=== PATIENT | male | born 1980 | race Two or more races ===

== ENCOUNTER 2016-11-07 16:03 | Emergency (ER) | payer OTHER ==
[2016-11-07 16:15] VITALS: BP 140/85; PULSE 62; RESP 18; TEMP 98.1; O2SAT 99
[2016-11-07] MEDS ORDERED: cefTRIAXone 250 MG VIAL IM ONE (16:28)
[2016-11-07] MEDS ORDERED: AZITHROMYCIN 250 MG TAB PO ONE (16:28)
--- NOTE | 2016-11-07 16:32 | EDPHY ---
H & P Time Seen by Provider: 11/07/16 16:11 HPI/ROS: HPI Penile irritation, concerned about STD. 28-year-old male by private vehicle. Reports that he had protected sex in the last couple of days with an on and off girlfriend. Reports that for the last 4 days he has had irritation around his glans penis with a whitish discharge around this area and a burning sensation at the tip when he urinates. He denies any purulent discharge. No penile lesions. No history of diabetes. He has not had symptoms similar to this in the past. ROS: Constitutional: No fever, no chills. No weakness. Eyes: No discharge. No changes in vision. Respiratory: No cough. No shortness of breath. Cardiac: No chest pain, no palpitations. Gastrointestinal: No abdominal pain, no vomiting, no diarrhea. Genitourinary: No hematuria. As above. Musculoskeletal: No back pain. No neck pain. No myalgias or arthralgias. Skin: No rashes. Neurological: No headache. No focal weakness or altered sensation. Past medical history: No medical history. Denies any prescription medications. [facility]. Social history: Here by himself. No alcohol. Nonsmoker. Denies IV drugs or street drugs. Physical Exam: General Appearance: Alert, no distress. This patient is responding to questions appropriately and in full sentences. This patient appears well- hydrated and well-nourished. Eyes: Pupils equal and round no pallor or injection. No lid edema, erythema or injection. Genitourinary: No purulent discharge from the penile meatus. Uncircumcised penis. On retraction of the foreskin there is some whitish discharge with underlying erythema around the base of the glans penis. There are no skin ulcerations or other lesions involving the penis or testicles. Gastrointestinal: Abdomen is soft and nontender, no masses, bowel sounds normal. No focal tenderness at McBurney's point. No Baum sign. Neurological: Motor sensory function is grossly intact. Cranial nerves are normal. Gait is normal. Skin: Warm and dry, no rashes. Extremities are symmetrical. All joints range without pain or impingement. Psychiatric: No agitation. No depression. Database: EKG: Imaging: Procedures: Emergency department course: Vital signs reviewed and are unremarkable. Patient concerned about STD although he states that he used a condom with recent sexual relations with a woman. Urine sent for GC and chlamydia testing. He will be treated for gonorrhea and chlamydia with IM ceftriaxone and oral azithromycin considering his history. However, his presentation is more consistent with balanoposthitis. His blood sugar is within normal limits. I will discharge him with plan to treat him with nystatin cream. He has been instructed to return to the emergency department in 2-3 days for follow up with his primary care physician at [facility] for re-evaluation. If the rash is not clearing by that time he is to be treated for a possible bacterial source with Keflex. He understands this plan. All of his questions were answered. Return to emergency department precautions discussed. He was discharged in good condition. Differential Diagnosis: The differential diagnosis on this patient includes but is not limited to balanoposthitis, STI. This represents a partial list of diagnoses considered. These considerations are based on history, physical exam, past history, reassessment and diagnostic testing. Smoking Status: Never smoked Constitutional: Initial Vital Signs Temperature (C) 36.7 C 11/07/16 16:13 Heart Rate 62 11/07/16 16:13 Respiratory Rate 18 11/07/16 16:13 Blood Pressure 140/85 H 11/07/16 16:13 O2 Sat (%) 99 11/07/16 16:13 O2 Delivery Mode Room Air Allergies/Adverse Reactions: No Known Allergies Allergy (Verified 11/07/16 16:12) Home Medications: Medication Instructions Recorded No Medications [No Known] 03/07/12 Nystatin [Mycostatin Cream (RX)] 30 marj TP TID 14 Days cream 11/07/16 Departure - Departure Disposition: Home, Routine, Self-Care Clinical Impression: Balanoposthitis Condition: Good Instructions: Balanitis (ED) Additional Instructions: Read and follow provided instructions. Follow-up with your primary care physician in 2-3 days for re-evaluation as discussed. If your rash is not improving by that time, I recommend that you be treated with the antibiotic Keflex, 500 mg 4 times daily for 7 days. Your test results for sexually transmitted infections will also be available in 1-2 days Nystatin cream: Apply to affected area 3 times daily for 14 days. Return to the emergency department for worsening symptoms, fever, worsening rash or other serious concerns. Referrals: Galina Napoles MD [Primary Care Provider] - As per Instructions Prescriptions: Nystatin [Mycostatin Cream (RX)] 30 marj TP TID 14 Days cream
[2016-11-08 14:42] LABS: CHLAMYDIA AMPLIFICATION GENPRB NEGATIVE (NEGATIVE)
== END 2016-11-07 17:13 | disposition home or self-care (01) ==
LOC: CED 16:03
DX: N47.6 Balanoposthitis (principal)
CPT/HCPCS: 82947-QW; J0696

== ENCOUNTER 2017-12-22 17:21 | Emergency (ER) | payer OTHER ==
--- NOTE | 2017-12-22 17:56 | EDPHY ---
H & P Time Seen by Provider: 12/22/17 17:36 HPI/ROS: CHIEF COMPLAINT: Foreign body sensation in throat History by patient HISTORY OF PRESENT ILLNESS: 37-year-old man presents complaining of pain in the left side of his throat after he felt like he swallowed something metal. Patient states he is eating a piece of sesame chicken at [employer] and his braces bracket broke and he thought maybe he had swallowed the piece of metal from that. He immediately began gagging and choking. He was able to calm down and swallow and drink water but he felt like something was still stuck in the left side of his throat just above his sternal notch. He noticed that the braces were broken but the metal wire was still there, there were no missing pieces. He denies any difficulty breathing. He has been able to swallow without difficulty but with discomfort. REVIEW OF SYSTEMS: As in HPI, and all other systems reviewed and are negative Smoking Status: Never smoked Physical Exam: General Appearance: Alert and no distress. Head: normocephalic, atraumatic, no sinus tenderness Eyes: Pupils equal and round no injection. OP: mucus membranes moist, no tonsillar enlargement, no exudates or lesions, no drooling Neck: no meningismus, no cervical nodes, no submandibular nodes, no stridor Respiratory: Chest is nontender, lungs are clear to auscultation. No wheezes, rales, rhonchi Cardiac: regular rate and rhythm. S1, S2, no murmurs, gallops, rubs appreciated. Gastrointestinal: Abdomen is soft and nontender, no masses, bowel sounds normal. Musculoskeletal: Neck is supple and nontender. Extremities have full range of motion and are nontender. Skin: No rashes or lesions. Constitutional: Initial Vital Signs Temperature (C) 36.3 C 12/22/17 17:30 Heart Rate 83 12/22/17 17:30 Respiratory Rate 16 12/22/17 17:30 Blood Pressure 121/91 H 12/22/17 17:30 O2 Sat (%) 97 12/22/17 17:30 O2 Delivery Mode Room Air Allergies/Adverse Reactions: No Known Allergies Allergy (Verified 12/22/17 17:29) Home Medications: Medication Instructions Recorded No Medications [No Known] 03/07/12 MDM/Departure - MDM Imaging Results: Imaging Impressions Soft Tissue Neck X-Ray 12/22/17 17:42 Impression: Negative for definite radiopaque foreign body. Medications Given: Discontinued Medications Al Hydroxide/Mg Hydroxide (Maalox Susp) 30 ml PO ONCE ONE Stop: 12/22/17 18:23 Last Admin: 12/22/17 18:29 Dose: 30 ml Lidocaine (Lidocaine 2% Viscous) 15 ml PO ONCE ONE Stop: 12/22/17 18:23 Last Admin: 12/22/17 18:29 Dose: 15 ml ED Course/Re-evaluation: 37-year-old man presents with foreign body sensation after breaking his braces eating a piece of supposedly boneless chicken. X-ray shows no evidence of foreign body or free air. I suspect the patient has esophageal injury given him the foreign body sensation but no evidence of need for emergent endoscopy tonight.. He is controlling his secretions and there is no airway compromise. He was given GI cocktail with symptomatic improvement. I recommend follow up in 48 hr if his symptoms persist and sooner if there is any worsening or inability the the to swallow or control secretions. Patient understands and is agreeable to this plan. - Depart Disposition: Home, Routine, Self-Care Clinical Impression: Sensation of foreign body in esophagus Condition: Good Instructions: Esophageal Foreign Body (ED) Additional Instructions: You were seen by Dr. Zenobia Wallis today. Your x-ray showed no evidence of metal in the soft tissue of your neck. It is likely that whenever broke her braces has scraped your esophagus given you the sensation that something is in there. You may take Tylenol ibuprofen at home. Drink plenty of fluids. You may eat you feel like although soft foods may go down easier for the next day or so. If her symptoms persist on Sunday please return to see her primary care physician or to the ER. Return for any worsening or new concerns, including but not limited to inability to swallow liquids, difficulty breathing or increased pain. Referrals: Galina Napoles MD [Primary Care Provider] - As per Instructions
[2017-12-22] MEDS ORDERED: LIDOCAINE 2% VISCOUS 15 ML UDCUP PO ONE (18:22)
[2017-12-22] MEDS ORDERED: MAG HYDROX/AL HYDROX/SIMETH 30 ML UDCUP PO ONE (18:22)
[2017-12-22 18:57] VITALS: BP 129/84
== END 2017-12-22 18:56 | disposition home or self-care (01) ==
LOC: CED 17:21
DX: R09.89 Other specified symptoms and signs involving the circulatory and respiratory systems (principal)
CPT/HCPCS: 70360-PO